=== PATIENT | female | born 1965 | race Caucasian/White ===

== ENCOUNTER 2020-02-19 17:02 | Emergency (ER) | payer MEDICARE ==
--- NOTE | 2020-02-19 18:46 | RAD ---
RADIOGRAPH LEFT WRIST THREE VIEWS: Date: 02-19-2020 History: 54-year-old female with nontraumatic left wrist pain. FINDINGS: Joint spaces are maintained without erosions or osteophytes. No soft tissue calcifications. Bone mine ralization within normal limits. No fracture or destructive osseous lesion. IMPRESSION: Negative. POS: [facility]
== END 2020-02-19 18:45 | disposition home or self-care (01) ==
LOC: MADERS 17:02
DX: M25.532 Pain in left wrist (principal); M19.90 Unspecified osteoarthritis, unspecified site; G62.9 Polyneuropathy, unspecified; F41.9 Anxiety disorder, unspecified; F32.9 Major depressive disorder, single episode, unspecified; F17.210 Nicotine dependence, cigarettes, uncomplicated; Z79.899 Other long term (current) drug therapy

== ENCOUNTER 2021-03-19 09:31 | Emergency (ER) | payer MEDICARE ==
[2021-03-19 09:58] LABS: Bilirubin Negative (Negative); Blood, Urine Moderate (Negative); Clarity Slightly Cloudy (Clear); Glucose, Urine (Dipstick) Negative (Negative); Ketone, Urine Negative (Negative); Leukocyte Moderate (Negative); Nitrite Positive (Negative); Protein, Urine (Dipstick) 30 mg/dL (Neg-Trace); Urobilinogen 0.2 mg/dL (Less than 2)
[2021-03-19 09:59] LABS: WBC/HPF Greater Than 50 HPF (0-3)
[2021-03-19 10:00] LABS: Bacteria/HPF 1+ HPF (None Seen); Squamous Epithelial 0-3 HPF (0-3)
[2021-03-19] MEDS ORDERED: Sulfameth/Trimethoprim DS 800-160mg TAB ONE (10:06)
== END 2021-03-19 10:10 | disposition home or self-care (01) ==
LOC: MADERS 09:31
DX: N39.0 Urinary tract infection, site not specified (principal); F17.210 Nicotine dependence, cigarettes, uncomplicated; Z79.899 Other long term (current) drug therapy
CPT/HCPCS: 81003; 81015; 87077; 87086; 87186; 99406